=== PATIENT | female | born 1970 | race Caucasian/White ===

== ENCOUNTER 2017-09-11 12:32 | Inpatient (IN) ==
--- NOTE | 2017-09-10 22:24 | Discharge Summary ---
<Gloria Lynn E - Last Filed: 09/10/17 22:20> Date of Encounter: 09/10/17 - Discharge Diagnosis (1) Status post total knee replacement, left Priority: Primary Status: Acute (2) Arthritis of left knee Priority: Primary Status: Chronic (3) Factor V Leiden Priority: Secondary Status: Chronic (4) Fibromyalgia Priority: Secondary Status: Chronic (5) Obesity Priority: Secondary Status: Chronic Qualifiers: Obesity type: unspecified obesity type Obesity classification: unspecified obesity classification Serious obesity comorbidity presence: unspecified whether serious comorbidity present Qualified Code(s): E66.9 - Obesity, unspecified (6) HTN (hypertension) Priority: Secondary Status: Chronic Qualifiers: Hypertension type: unspecified Qualified Code(s): I10 - Essential (primary ) hypertension (7) Chronic pain Priority: Secondary Status: Chronic Qualifiers: Chronic pain type: other chronic pain Qualified Code(s): G89.29 - Other chronic pain - Hospital Course Hospital course: Ms. Boone is a 47 year old female - Time Spent with Patient Total time spent providing and/or coordinating discharge services: - Discharge Medications Home Medications: Aspirin Enteric Coated [Aspirin EC] 325 mg PO BID 10 Days #20 tablet. [Rx] Oxycodone HCl 5 mg PO Q6H PRN 7 Days #28 tablet 09/10/17 [Rx] Amitriptyline [Elavil] 25 mg PO HS 09/11/17 [History] Aspirin [Lo-Dose Aspirin EC] 81 mg PO DAILY 09/11/17 [History] Calcium Carbonate/Vitamin D3 [Calcium 600 + Vit D Tablet] 2 tab PO DAILY [History] Gabapentin [Neurontin] 1,600 mg PO BID 09/11/17 [History] Losartan/HCTZ [Hyzaar 50-12.5 Tablet] 1 tab PO DAILY 09/11/17 [History] Tramadol HCl [Ultram] 100 mg PO Q6H PRN 09/11/17 [History] Allergies/Adverse Reactions: 3 Allergy/AdvReac Type Severity Reaction Status Date / Time Amoxicillin Allergy Difficulty Verified 09/11/17 13:09 Breathing naproxen [From Naprosyn] Allergy Difficulty Verified 09/11/17 13:09 Breathing Penicillins [PCN] Allergy Difficulty Verified 09/11/17 13:09 Breathing lisinopril AdvReac Cough Verified 09/11/17 13:09 Primary care physician: Yessy Feldman CNP - Patient Status Disposition: Home, Self-Care Condition: Good - Discharge Instructions Follow Up With: Yessy Feldman CNP [Primary Care Provider] - <ChemaAbram De La Cruz - Last Filed: 09/12/17 06:54> Orders not resulted at time of discharge: Pending orders 09/11/17 01:00 XR knee LT limited 1-2V [XR] Routine Hemoglobin and Hematocrit [HEME] Routine Date of Encounter: 09/12/17 Time of Encounter: 06:54 - Discharge Diagnosis (1) Morbid obesity with BMI of 40.0-44.9, adult Priority: Secondary Status: Chronic (2) Sacroiliitis Priority: Secondary Status: Chronic (3) Status post total knee replacement, left Priority: Primary Status: Acute (4) Arthritis of left knee Priority: Primary Status: Chronic (5) Factor V Leiden Priority: Secondary Status: Chronic (6) Fibromyalgia Priority: Secondary Status: Chronic (7) Obesity Priority: Secondary Status: Chronic Qualifiers: Obesity type: unspecified obesity type Obesity classification: unspecified obesity classification Serious obesity comorbidity presence: unspecified whether serious comorbidity present Qualified Code(s): E66.9 - Obesity, unspecified (8) HTN (hypertension) Priority: Secondary Status: Chronic Qualifiers: Hypertension type: unspecified Qualified Code(s): I10 - Essential (primary ) hypertension (9) Chronic pain Priority: Secondary Status: Chronic Qualifiers: Chronic pain type: other chronic pain Qualified Code(s): G89.29 - Other chronic pain - Hospital Course Hospital course: Ms. Boone is a 47 year old female Status post left total knee replacement The patient had an uneventful postoperative course. They received antibiotics and physical therapy and were discharged in stable condition. There will follow -up in the office in 2 weeks. - Time Spent with Patient Total time spent providing and/or coordinating discharge services: Primary care physician: Yessy Feldman CNP - Patient Status Functional capacity at discharge: uses cane/walker Overall status at discharge: patient is progressing back to baseline
[2017-09-11] MEDS ORDERED: CeFAZolin Syr 2,000MG/20 ML 2,000 MG/20 ML SYRINGE IVPB ONE (12:54)
--- NOTE | 2017-09-11 12:54 | History & Physical Report ---
Date of Encounter: 09/11/17 Time of Encounter: 12:53 24 Hour HP Update - Instructions Instructions: If the History and Physical is less than 30 days old and was completed prior to A.M. admission and or procedure and has NOT been updated on calendar day of procedure please complete this update prior to performing procedure. - Update Patient reports changes in Medical Condition: No Changes in examination, assessment, or condition: No Changes in Medication: No Preop tests/diagnostics Reviewed: Yes Surgery Remains Indicated: Yes Consent for Planned Operative Procedure(s) Verified: Yes - Pre-Operative Checklist Preoperative Checklist Indicated: No Prophylactic Antibiotic Ordered: Yes Is VTE Prophylaxis Indicated?: Yes
[2017-09-11] MEDS ORDERED: Ringers Solution, Lactated 1,000 ML IVC SCH (13:00)
[2017-09-11] MEDS ORDERED: Acetaminophen IV 1,000 MG/100 ML INFUS..BTL IVPB ONE (13:57)
--- NOTE | 2017-09-11 14:00 | Anesthesia Evaluation PreOp ---
Date of Encounter: 09/11/17 Time of Encounter: 13:57 - Past History Planned Operation: L robotic knee arthroplasty Cardiac History: HTN Pulmonary History: Former smoker CARDIAC CARE NURSE History: Other (fibromyalgia) Other Medical History: Other (BMI 44, factor V leiden) Anesthesia History: No Prior Anesthetic Complications, Past Anesthesia (R knee scope, l knee scope, ear surgeries, d and c, R knee partial replacement) Alcohol Use: none Drug use: none Medications and Allergies Aspirin Enteric Coated [Aspirin EC] 325 mg PO BID 10 Days #20 tablet. [Rx] Oxycodone HCl 5 mg PO Q6H PRN 7 Days #28 tablet 09/10/17 [Rx] Amitriptyline [Elavil] 25 mg PO HS 09/11/17 [History] Aspirin [Lo-Dose Aspirin EC] 81 mg PO DAILY 09/11/17 [History] Calcium Carbonate/Vitamin D3 [Calcium 600 + Vit D Tablet] 2 tab PO DAILY [History] Gabapentin [Neurontin] 1,600 mg PO BID 09/11/17 [History] Losartan/HCTZ [Hyzaar 50-12.5 Tablet] 1 tab PO DAILY 09/11/17 [History] Tramadol HCl [Ultram] 100 mg PO Q6H PRN 09/11/17 [History] 3 Allergy/AdvReac Type Severity Reaction Status Date / Time Amoxicillin Allergy Difficulty Verified 09/11/17 13:09 Breathing naproxen [From Naprosyn] Allergy Difficulty Verified 09/11/17 13:09 Breathing Penicillins [PCN] Allergy Difficulty Verified 09/11/17 13:09 Breathing lisinopril AdvReac Cough Verified 09/11/17 13:09 - Meds/Allergy Pre-op Review Medications Reviewed: Yes Allergies Reviewed: Yes Beta Blockers on Current Med List: No Anesthesia Results - Labs Laboratory Tests 09/04/17 09/04/17 09/04/17 15:15 15:15 15:15 WBC 9.0 Hgb 13.5 Hct 41.7 Plt Count 322 PT 11.4 INR 1.1 APTT 31.3 Sodium 136 Potassium 3.9 Chloride 102 Carbon Dioxide 27 BUN 12 Creatinine 0.57 L Serum , Qual 09/04/17 15:15 WBC Hgb Hct Plt Count PT INR APTT Sodium Potassium Chloride Carbon Dioxide BUN Creatinine Serum , Qual Negative - Imaging EKG: report reviewed (SR) Anesthesia Exam O2 Sat Height 1.63 m Height 1.63 m Height 1.63 m Weight 117.934 kg Weight 117.934 kg Weight 117.934 kg O2 Sat by Pulse Oximetry 98 Vital Signs Temp Pulse Resp BP Pulse Ox 97.9 F 91 18 147/89 98 09/11/17 12:59 09/11/17 12:59 09/11/17 12:59 09/11/17 12:59 09/11/17 12:59 Height: 63" Weight: 254lbs NPO (# of Hours): >8 Pain Scale: 0 Pain Scale Used: Numeric (1 - 10) - HEENT Pupil (Motor): Pupils equal, EOMI Mallampati: II Teeth: Normal Oral Opening: Greater than 3 - CARDIAC CARE NURSE LOC: Oriented CARDIAC CARE NURSE Motor: Normal RUE, Normal LUE, Normal RLE, Normal LLE, Normal Face CARDIAC CARE NURSE Sensory: Normal: RUE, LUE, RLE, LLE, Face - Cardiac Rhythm: Regular - Pulmonary Breath Sounds: bilateral Clear Respiratory Effort: Symmetrical Anesthesia Assess/Plan ASA Score: 3 Modified Ilya Scale for Level of Consciousness: Cooperative, oriented, and tranquil Anesthetic Plan: General, Regional (spinal, adductor canal nn block), MAC Monitoring Plan: Standard Monitors Recovery Plan: PACU
[2017-09-11] MEDS ORDERED: Ondansetron 4 MG/2 ML VIAL ONE (14:02)
[2017-09-11] MEDS ORDERED: Lidocaine -MPF 2% 2 ML VIAL ONE (14:02)
[2017-09-11] MEDS ORDERED: *HR* Midazolam HCl 2 MG/2 ML VIAL ONE ×2 (14:03→14:39)
[2017-09-11] MEDS ORDERED: *HR* FentaNYL (PF) 100 MCG/2 ML VIAL ONE (14:03)
[2017-09-11] MEDS ORDERED: Dexamethasone 4 MG/ML VIAL ONE (14:03)
[2017-09-11] MEDS ORDERED: Propofol 500 MG/50 ML INFUS..BTL ONE (14:03)
[2017-09-11] MEDS ORDERED: Morphine Sulfate/PF 5mg/10mL Vial ONE (14:15)
[2017-09-11] MEDS ORDERED: ROPIVACAINE HCL/PF 0.5% 30 ML VIAL ONE (14:16)
--- NOTE | 2017-09-11 14:47 | Anesthesia Procedures ---
Date of Encounter: 09/11/17 Time of Encounter: 14:45 Procedures: Anesthesia - Nerve Block Procedure Date: 09/11/17 Time: 14:45 Allergies/Adv Reactions: Amoxicillin Allergy (Verified 09/11/17 13:09) Difficulty Breathing naproxen [From Naprosyn] Allergy (Verified 09/11/17 13:09) Difficulty Breathing Penicillins [PCN] Allergy (Verified 09/11/17 13:09) Difficulty Breathing lisinopril Adverse Reaction (Verified 09/11/17 13:09) Cough Pre-op Diagnosis: left knee oa Surgical Procedure: left tka Checklist: Correct Patient Identifier, Correct procedure, History checked Correct side: Left Blood Thinner: Yes Monitor Applied: EKG, BP, Pulse Oximetry Supplemental Oxygen via Nasal Cannula (L/min): 2 Sedation: Versed (mg): 4 Sedation: Fentanyl (mcg): 100 Indication: Post Op Analgesia Pre-op Neuro Deficits: No Block Type: Other (adductor) Catheter placed: No Sterile Technique: Yes Ultrasound used: Yes Anatomy identified: Yes Visual spread of Local: Yes Neuro Stimulation: No Blood on Needle Aspiration: No Prep: Chlorhexadine Needle: 21 x 100 mm Stimuplex Local: Ropivacaine (0.5%) Volume (cc): 30 Number of Attempts: 1 Complications: None/effective block
[2017-09-11] MEDS ORDERED: Ethanol\\Acetic Acid\\Na Ace\\Ben 1,000 ML IRRIG.SOLN IR ONE (14:56)
[2017-09-11] MEDS ORDERED: *HR* Promethazine 25 MG/ML VIAL IVP PRN (15:59)
[2017-09-11] MEDS ORDERED: *HR* Meperidine 25 MG/ML SYRINGE IVP PRN (15:59)
[2017-09-11] MEDS ORDERED: *HR* OxyCODONE Immed Rel 5 MG TABLET PO PRN (15:59)
--- NOTE | 2017-09-11 16:27 | Orthopedic Operative Note ---
Date of procedure: 09/11/17 Pre-op diagnosis: Left knee arthritis Post-op diagnosis: same Procedure: Procedure:left robotic-assisted Total knee replacement Estimated blood loss: 200 cc Hardware: Metal and polyethylene replacement. Jered Femur: 2 Tibia:2 TS insert: 13 Patella: 36 Exam Under anesthesia: 5 degrees hyperextension 1 degree valgus as calculated by the robot full flexion and no instability Procedural Notes: Grade 3 arthritic changes all 3 compartments. Operative procedure: The patient was brought to the operating room and placed on the operating room table. After general anesthesia was administered the operative knee was examined. Findings were noted in the exam under anesthesia. The operative extremity was prepped and draped in sterile surgical fashion. The patient received IV antibiotics prior to skin incision. A standard midline incision was made centered over the patella. The incision was made through the skin and subcutaneous tissue. A medial parapatellar tendon approach was performed. Care was taken to preserve tissue along the medial aspect of the patella. And to protect the patella tendon. The deep MCL was released off the medial tibia. The infra patella fat pad was excised. The patella was everted and cut was made at the level of the insertion of the quadriceps and patella tendon. The patella was sized the guide was seated and the lug holes are drilled. Knee was brought into flexion. Patient noted to have grade 3 arthritic changes all 3 compartments. Steinmann pins were placed in the tibia and the femur for the tibial and femoral arrays respectively. Checkpoints were also placed in the tibia and the femur for calculation purposes. The knee including the femur and the tibial registered. Osteophytes, ACL and PCL were excised at this point. Extension and flexion were assessed with a valgus stress components were adjusted on the computer to balance the knee. Femoral cuts were made first with robotic assistance, these included the anterior cut posterior cuts chamfer cuts. Tibial cut was then performed with robotic assistance as well. Bone fragments were removed, as well as the medial and lateral meniscus. The size 2 femoral guide was seated box cut was made lug holes are drilled. The size 2 tibial tray was seated and prepared with the fin cutter. Trial reduction with the 13 TS Jennifer revealed extension of 0 degree and full flexion. No varus valgus instability. Trial reduction revealed excellent patella tracking. All trial components were removed all bony surfaces were irrigated. The Tibia was seated followed by the femur, The Jennifer size 13 was seated and secured patella. Patient had similar findings for motion and stability. The knee was closed by the PA. The knee was then irrigated out with 2 L of pulse irrigation. The extensor mechanism was closed with #2 FiberWire suture and #2 PDS suture. The subcutaneous tissue was then irrigated and closed deep with #1 PDS suture superficially with 0 PDS suture and skin was closed with zip tie The patient was then placed in a sterile dressing and a postoperative brace extubated and transferred to recovery room in stable condition. Anesthesia: spinal Surgeon: Abram Bear Was there an clinical physician assistant present: Yes Bag Valver: Rachel Calderón Estimated blood loss (cc): 200 Condition: stable Disposition: PACU
[2017-09-11 17:15] LABS: Hematocrit 36.8 % (35.3-44.9); Hemoglobin 12.2 g/dL (11.5-15.4)
[2017-09-11] MEDS ORDERED: *HR* OxyCODONE/APAP 5/325 TABLET PO PRN (17:33)
--- NOTE | 2017-09-11 17:33 | Anesthesia Evaluation Post Op ---
Date of Encounter: 09/11/17 Time of Encounter: 17:30 - Vital Signs Vital Signs: Vital Signs/O2 Sat/Glucose, Most Current Temp Pulse Resp BP Pulse Ox 09/11/17 17:23 71 16 133/74 97 09/11/17 17:14 97.8 F 72 16 130/66 96 09/11/17 17:04 69 16 125/67 97 09/11/17 16:54 67 18 129/71 98 09/11/17 16:44 98.0 F 80 16 118/68 97 09/11/17 15:09 77 16 132/72 94 09/11/17 14:40 93 16 137/67 97 - Lungs Lungs: Clear Ascult./Percussion - Airway Airway: Non-obstructed - Cardiovascular Regular Rate - Mental Status Mental Status: Alert & Oriented, Answers Appropriately - Pain Pain Scale: 0 - Nausea Vomiting Nausea Vomiting: Not Present - Hydration Hydration: Tolerates oral liquids - Discharge PostOp Status: Transfer Patient to floor
[2017-09-11] MEDS ORDERED: *HR* Enoxaparin 30 MG/0.3 ML SYRINGE SQ SCH (18:00)
[2017-09-11] MEDS ORDERED: MOM Conc 10 ML UD.LIQ PO PRN (18:15)
[2017-09-11] MEDS ORDERED: Naloxone 0.4 MG/ML INJ IVP PRN (18:15)
[2017-09-11] MEDS ORDERED: Temazepam 15 MG CAPSULE PO PRN (18:15)
[2017-09-11] MEDS ORDERED: Sennosides 8.6 MG TABLET PO PRN (18:15)
[2017-09-11] MEDS ORDERED: traMADol 50 MG TABLET PO PRN (18:15)
[2017-09-11] MEDS ORDERED: Ondansetron 4 MG/2 ML VIAL IVP PRN (18:15)
[2017-09-11] MEDS ORDERED: Clindamycin 900 MG/50 ML 900 MG/50 ML IV.SOLN IVPB SCH (18:15)
[2017-09-11] MEDS: *HR* OxyCODONE Immed Rel 5 MG TABLET PO PRN ×2 (19:11→23:32)
[2017-09-11] MEDS: Ringers Solution, Lactated 1,000 ML IVC SCH (19:12)
[2017-09-11] MEDS: Gabapentin 400 MG CAPSULE PO SCH (20:39)
[2017-09-11] MEDS: *HR* OxyCODONE/APAP 5/325 TABLET PO PRN (20:40)
[2017-09-11] MEDS: Clindamycin 900 MG/50 ML 900 MG/50 ML IV.SOLN IVPB SCH (23:27)
[2017-09-12] MEDS: *HR* OxyCODONE/APAP 5/325 TABLET PO PRN ×3 (03:12→13:33)
[2017-09-12 03:14] LABS: Hematocrit 35.7 % (35.3-44.9); Hemoglobin 11.4 g/dL (11.5-15.4)
[2017-09-12 03:32] LABS: BUN/Creatinine Ratio 20 (6-26); Blood Urea Nitrogen 11 mg/dL (6-20); Calcium 8.7 mg/dL (8.6-10.3); Carbon Dioxide 25 mEq/L (23-29); Chloride 102 mEq/L (98-107); Glucose 197 mg/dL (70-105); Osmolality,Calculated 281 (280-300); Potassium 4.2 mEq/L (3.5-5.1); Sodium 133 mEq/L (136-145); eGFR For African Americans > 60 (> 60); eGFR For Non-African Americans > 60 (> 60)
[2017-09-12] MEDS: Ringers Solution, Lactated 1,000 ML IVC SCH (04:21)
[2017-09-12] MEDS: *HR* OxyCODONE Immed Rel 5 MG TABLET PO PRN ×3 (05:34→15:17)
[2017-09-12] MEDS ORDERED: *HR* Enoxaparin 30 MG/0.3 ML SYRINGE SQ SCH (06:00)
--- NOTE | 2017-09-12 06:55 | Orthopedics Progress Note ---
Date of Encounter: 09/12/17 Time of Encounter: 06:55 - Assessment and Plan (1) Morbid obesity with BMI of 40.0-44.9, adult Current Visit: Yes Status: Chronic (2) Sacroiliitis Current Visit: No Status: Chronic (3) Status post total knee replacement, left Current Visit: No Status: Acute (4) Arthritis of left knee Current Visit: No Status: Chronic (5) Factor V Leiden Current Visit: No Status: Chronic (6) Fibromyalgia Current Visit: No Status: Chronic (7) Obesity Current Visit: No Status: Chronic Qualifiers: Obesity type: unspecified obesity type Obesity classification: unspecified obesity classification Serious obesity comorbidity presence: unspecified whether serious comorbidity present Qualified Code(s): E66.9 - Obesity, unspecified (8) HTN (hypertension) Current Visit: No Status: Chronic Qualifiers: Hypertension type: unspecified Qualified Code(s): I10 - Essential (primary ) hypertension (9) Chronic pain Current Visit: No Status: Chronic Qualifiers: Chronic pain type: other chronic pain Qualified Code(s): G89.29 - Other chronic pain Subjective Interval history: Patient was seen this morning doing well without complaints. Afebrile vital signs stable. Operative extremity: Neurovascularly intact Dressing clean dry and intact Calves nontender Assessment and plan: Continue with postoperative care Discharged today Objective Vital signs: Vital Signs Temp Pulse Resp BP Pulse Ox 09/12/17 06:00 95 09/12/17 03:17 97.8 F 77 18 123/77 95 09/11/17 22:39 97.8 F 78 18 168/93 97 09/11/17 18:53 97.5 F L 70 16 125/80 97 09/11/17 18:34 97 09/11/17 18:21 97.8 F 67 16 121/81 97 09/11/17 17:23 71 16 133/74 97 09/11/17 17:14 97.8 F 72 16 130/66 96 09/11/17 17:04 69 16 125/67 97 09/11/17 16:54 67 18 129/71 98 09/11/17 16:44 98.0 F 80 16 118/68 97 09/11/17 15:09 77 16 132/72 94 09/11/17 14:40 93 16 137/67 97 05/14/18 12:59 97.9 F 91 18 147/89 98 Intake and Output 09/11/17 09/11/17 09/12/17 15:59 23:59 07:59 Intake Total 440 / 440 1550 / 1550 Output Total 400 / 400 200 / 200 Balance 40 / 40 1350 / 1350 Intake: IV Fluids 1050 / 1050 Lactated Ringers 1,000 ML @ 75 1000 / 1000 mls/hr IVC .[id number] DONNA Rx#: [id number] Cleocin Premix 900 MG/50 ML 900 50 / 50 mg In 50 ml @ 50 mls/hr IVPB Q8HR DONNA Rx#:[id number] Oral 440 / 440 500 / 500 Output: Urine 200 / 200 200 / 200 Estimated Blood Loss 200 / 200 Other: # Voids 1 1 Weight 117.934 kg - Labs CBC & BMP: 09/12/17 02:07 09/12/17 02:07 Labs: Abnormal lab results Hgb 11.4 g/dL (11.5-15.4) L 09/12/17 02:07 Sodium 133 mEq/L (136-145) L 09/12/17 02:07 Creatinine 0.56 mg/dL (0.60-1.20) L 09/12/17 02:07 Glucose 197 mg/dL (70-105) H 09/12/17 02:07 - VTE Documentation of Mechanical Device: Venous foot pump, device Consult Discharge Plan - Plan Referrals: Yessy Feldman, [employer] [Primary Care Provider] -
[2017-09-12] MEDS: Gabapentin 400 MG CAPSULE PO SCH (08:29)
[2017-09-12] MEDS: Clindamycin 900 MG/50 ML 900 MG/50 ML IV.SOLN IVPB SCH (08:29)
--- NOTE | 2017-09-12 08:40 | Event Note ---
Date of Encounter: 09/12/17 Time of Encounter: 09:10 PCR- POD#1 left total knee robotic 09/11/17 Dr. Bear PCR - Patient seen at bedside. Labwork and medications reviewed. Pain control: Adequate Participating in PT. All questions and concerns addressed. Educated on use of incentive spirometer, ambulation, and hydration. Patient educated on post-operative restrictions and care. Addressed: Patient was significant swelling to the left calf as well as pain with palpation. Stat Doppler today prior to discharge. D/C plan: Home with outpatient therapy today
[2017-09-12] MEDS ORDERED: Losartan/HCTZ 50-12.5 TABLET PO SCH (09:00)
[2017-09-12] MEDS ORDERED: (Calcium Carbonate/Vitamin D3 [Calcium 600 + Vit D Ta) PO SCH (09:00)
[2017-09-12] MEDS ORDERED: Cholecalciferol (D-3) 1,000 UNIT TABLET PO SCH (09:00)
[2017-09-12] MEDS ORDERED: Aspirin Enteric Coated 81 MG Tablet PO SCH (09:00)
[2017-09-12 11:15] VITALS: BP 130/83
== END 2017-09-12 16:06 | disposition home or self-care (01) | DRG 302 ==
LOC: SAMDAY 12:32 → 3NENU 17:31
PROVIDERS: ADMIT Orthopaedic Surgery; ATTEND Orthopaedic Surgery